=== PATIENT | female | born 1955 ===

== ENCOUNTER → 2021-03-24 | Day surgery (SDC) | payer MEDICARE ==
[~2021-03-24] VITALS: Ht 157.5 cm; Wt 59.0 kg
[~2021-03-24] MED LIST: ACYCLOVIR400 MG PO; ATORVASTATIN CA10 MG PO; DIGOXIN250 MCG PO; IBUPROFEN800 MG PO; VERAPAMIL ER240 MG PO; vitamin D PO
[2021-03-24 06:42] LABS: HCT 41.6 % (37.0-47.0); HGB 13.9 g/dl (12.5-16.0); MCH 32.2 pg (25.0-31.0); MCHC 33.4 g/dL (32.0-36.0); MCV 96.3 fL (78.0-100.0); RBC 4.32 M/uL (4.20-5.40); RDW 12.2 % (11.5-14.0); WBC 6.6 K/uL (4.0-10.5)
[2021-03-24 06:59] LABS: BILIRUBIN - TOTAL 0.4 mg/dL (0.2-1.0); BUN/CREAT RATIO (CALC) 22.4 RATIO; CREATININE 0.58 mg/dL (0.51-0.95); GLOBULIN (CALCULATION) 3.6 g/dL; POTASSIUM 3.9 mmol/L (3.5-5.1); TOTAL PROTEIN 7.6 g/dL (6.4-8.2)
== END | disposition home or self-care (01) ==
LOC: FAS 06:02
PROVIDERS: Specialist
DX: D25.0 Submucous leiomyoma of uterus (principal); D26.1 Other benign neoplasm of corpus uteri; N95.0 Postmenopausal bleeding; E66.01 Morbid (severe) obesity due to excess calories; E78.5 Hyperlipidemia, unspecified; R94.31 Abnormal electrocardiogram [ECG] [EKG]; Z91.048 Other nonmedicinal substance allergy status; Z88.0 Allergy status to penicillin
CPT/HCPCS: 36415; 80053; C1782; J1100; J2250; J2405; J2704; J3010; J7120